=== PATIENT | male | born 1985 | race African-American/Black ===

== ENCOUNTER 2016-09-10 19:31 | Emergency (ER) | payer SELFPAY ==
--- NOTE | 2016-09-19 14:34 | ER ---
ADMIT: 09/10/2016 RM/LOC: ER [facility] MR#: [id number] [id number] [place], [place] [id number] PORCUPINE, GUSTAVO D [address] [place] [address] Emergency Room Report SEX: M AGE: 31 : 1985 DATE: 09/10/2016 ADDENDUM: This patient comes in to the ER because he had a seizure. He has a known seizure disorder. He states that he has not had a seizure for 2 years; however, he has not taken his medication in the last week. On physical exam, he does have some abrasions to his tongue, but he is alert and oriented and answers questions and speaks appropriately. His white count was 15,000, and his Dilantin level was markedly decreased at 1.6. I refilled his prescription for Dilantin, and we will have him follow up with the [facility] where he is normally seen. Please see my T-sheet. JUDE Ivan / Tima Dumas MD / andrew JOB #: [id number] CC: Shant Morse MD, Attending Physician Bernardo Hankins MD, Family Physician
== END 2016-09-10 21:45 | disposition home or self-care (01) ==
LOC: ER 19:31
DX: G40.909 Epilepsy, unspecified, not intractable, without status epilepticus (principal); Z79.899 Other long term (current) drug therapy